=== PATIENT | male | born 1970 | race Hispanic/Latino ===

== ENCOUNTER 2022-05-22 05:32 | Day surgery (SDC) | payer BC ==
[2022-05-19 10:19] LABS: APPEARANCE,URINE Clear (CLEAR); BILIRUBIN,URINE Negative (NEGATIVE); COLOR,URINE Yellow (YELLOW); GLUCOSE, URINE (UA) >=1000 mg/dL (NEGATIVE); KETONES,URINE Negative (NEGATIVE); LEUKOCYTE ESTERASE ,URINE Negative (NEGATIVE); NITRATE,URINE Negative (NEGATIVE); OCCULT BLOOD,URINE Negative (NEGATIVE); PROTEIN,URINE Negative (NEGATIVE); UROBILINOGEN,URINE 0.2 mg/dL (0.2-1.0)
[2022-05-19 10:22] LABS: BASOPHILS % (AUTO) 0.8 % (0.0-5.0); EOSINOPHILS % (AUTO) 1.8 % (0.0-8.0); HEMATOCRIT 49.7 % (42-54); LYMPHOCYTES % (AUTO) 16.9 % (21.0-51.0); MEAN CORPUSCULAR HEMOGLOBIN 30.5 pg (27.0-33.0); MEAN CORPUSCULAR HGB CONC 33.8 g/dL (32.0-36.0); MEAN CORPUSCULAR VOLUME 90.2 fL (79-99); MONOCYTES % (AUTO) 8.2 % (3.0-13.0); NEUTROPHILS % (AUTO) 71.7 % (40.0-77.0); PLATELET COUNT (AUTO) 267 K/uL (130-400); RED BLOOD CELL COUNT(AUTO) 5.51 MIL/uL (4.50-6.20); WHITE BLOOD COUNT (AUTO) 9.1 K/uL (4.8-10.8)
[2022-05-19 10:31] LABS: CREATININE 0.9 mg/dL (0.5-1.5)
[2022-05-19 10:32] LABS: INR 0.93 (0.85-1.15); PROTHROMBIN TIME 10.1 SEC (9.6-11.6)
[2022-05-19 10:33] LABS: PARTIAL THROMBOPLASTIN TIME 26.5 SEC (26.3-35.5)
[2022-05-19 10:38] LABS: RBC,URINE 0-1 /HPF (0-1); WBC,URINE 0-1 /HPF (0-1)
[2022-05-19 10:39] LABS: BACTERIA,URINE None Seen /HPF (None Seen); SQUAMOUS EPITHELIAL CELL,UR 0-2 /HPF (0-2)
[2022-05-21 09:13] VITALS: BP 138/78
[2022-05-22] VITALS (13 sets, daily range): BP systolic 96–115; BP diastolic 57–73
[~2022-05-22] VITALS: Ht 172.7 cm; Wt 85.7 kg
[~2022-05-22 05:32] MED LIST: AEC81 PO; CARV6.25 PO; DAPA10TA PO; FISH1CAP27 PO; GABA300C PO; LISI20TA24 PO; METF-445 PO; PIOG15TA66 PO; ROSU40TA21 PO; SEMA1PEN3 SQ; SILD50TA PO; VITAD50000 PO
[2022-05-22] MEDS ORDERED: 0.9%NACL 1000ML 1,000 ML IV ONE (06:12)
[2022-05-22] MEDS ORDERED: NITROGLYCERIN 50MG VIAL ONE (07:06)
[2022-05-22] MEDS ORDERED: LIDOCAINE HCL 400MG/20ML VIAL ONE (07:06)
[2022-05-22] MEDS ORDERED: IOHEXOL-350 50ML VIAL IV ONE (07:06)
[2022-05-22] MEDS ORDERED: IOHEXOL 350 MG/ML 100ML INFUS..BTL IV ONE (07:06)
[2022-05-22] MEDS ORDERED: HEPARIN 10,000 UNIT/10ML (1,000 UNIT/ML) VIAL ONE (07:06)
[2022-05-22] MEDS ORDERED: FENTANYL CITRATE PF 50 MCG/1 ML 2ML VIAL ONE (07:31)
[2022-05-22] MEDS ORDERED: MIDAZOLAM HCL 1 MG/ML 2ML VIAL ONE (07:31)
[2022-05-22] MEDS ORDERED: 0.9%NACL 1000ML 1,000 ML IV SCH (08:30)
[2022-05-22] MEDS ORDERED: GLUCAGON 1MG KIT 1 MG ML IM PRN (08:30)
[2022-05-22] MEDS ORDERED: DEXTROSE 50%-WATER 50 ML DISP.SYRIN IV PRN (08:30)
[2022-05-22] MEDS ORDERED: ALOE VERA PO (08:31)
[2022-05-22] MEDS ORDERED: CACTUS PO (08:31)
[2022-06-01] MEDS ORDERED: AMIO200T44 PO (17:39)
[2022-06-02] MEDS ORDERED: METO50TA18 PO (09:13)
[2022-06-02] MEDS ORDERED: FURO20TA6 PO (12:25)
== END 2022-05-22 14:10 | disposition home or self-care (01) ==
LOC: DAH 05:32
PROVIDERS: ATTEND Student in an Organized Health Care Education/Training Program
DX: I25.118 Atherosclerotic heart disease of native coronary artery with other forms of angina pectoris (principal); I10 Essential (primary) hypertension; E78.5 Hyperlipidemia, unspecified; E78.2 Mixed hyperlipidemia; E11.8 Type 2 diabetes mellitus with unspecified complications; Z79.82 Long term (current) use of aspirin; Z79.01 Long term (current) use of anticoagulants; Z79.899 Other long term (current) drug therapy
CPT/HCPCS: 80048; 85025; 85610; 85730; 81001; 36415; 71045; 93005; 93454; 82948 ×2; 93880; C1894 ×2; C1760; J3010; J3490; J7030; J2250; J1644; Q9967; A4215; A4222; A4221; A4663; A4216; A4606; Q9965; A4223 ×3; 96374; 96375; 99156; 99157

== ENCOUNTER 2023-04-09 17:00 | Emergency (ER) | payer OTHER, BC ==
[~2023-04-09] VITALS: Ht 165.1 cm; Wt 93.0 kg
[~2023-04-09 17:00] MED LIST changes: +ALOE VERA PO; +AMIO200T68 PO; +AMOX1TAB15 PO; +APIX5TAB PO; +ATOR40TA69 PO; +CACTUS PO; -CARV6.25 PO; -DAPA10TA PO; +FURO20TA6 PO; +HUM10VIA SQ; -LISI20TA24 PO; -METF-445 PO; +METO50TA18 PO; -PIOG15TA66 PO; -ROSU40TA21 PO; -SEMA1PEN3 SQ
[2023-04-09 20:07] VITALS: BP 132/89
== END 2023-04-09 20:08 | disposition home or self-care (01) ==
LOC: EDH 17:00
DX: Z04.1 Encounter for examination and observation following transport accident (principal); I10 Essential (primary) hypertension; E11.9 Type 2 diabetes mellitus without complications; Z79.899 Other long term (current) drug therapy; V49.88XA Car occupant (driver) (passenger) injured in other specified transport accidents, initial encounter; Y93.I9 Activity, other involving external motion; Y92.89 Other specified places as the place of occurrence of the external cause; Y99.8 Other external cause status
CPT/HCPCS: 71045; 84484; 93005